=== PATIENT | female | born 1970 | race Caucasian/White ===

== ENCOUNTER 2017-10-18 18:01 | Emergency (ER) | payer MEDICAID ==
[~2017-10-18] VITALS: Ht 160 cm; Wt 54.8 kg
[~2017-10-18 18:01] MED LIST: ALBU8.5H8 IH; DOXY100C77 PO; FLUO20CA39 PO; NAPAOS EACHEYE; PANT-47 PO
[2017-10-18 18:20] VITALS: BP 110/69
== END 2017-10-18 19:54 | disposition home or self-care (01) ==
LOC: ER 18:01
DX: M79.651 Pain in right thigh (principal); G89.29 Other chronic pain; Z86.14 Personal history of Methicillin resistant Staphylococcus aureus infection; Z98.51 Tubal ligation status; Z98.890 Other specified postprocedural states; Z60.2 Problems related to living alone; Z56.0 Unemployment, unspecified; Z79.899 Other long term (current) drug therapy
CPT/HCPCS: 99281

== ENCOUNTER 2017-12-29 15:50 | Emergency (ER) | payer MEDICAID ==
[~2017-12-29] VITALS: Ht 157.5 cm; Wt 59.0 kg
[2017-12-29 16:04] VITALS: BP 128/88
[2017-12-29] MEDS ORDERED: hyDROXYzine 50 mg/ml injection ***IM only IM ONE (16:45)
[2017-12-29] MEDS ORDERED: HYDR-3686 PO (17:13)
== END 2017-12-29 17:36 | disposition home or self-care (01) ==
LOC: ER 15:51
DX: F41.9 Anxiety disorder, unspecified (principal); F41.0 Panic disorder [episodic paroxysmal anxiety]; F32.9 Major depressive disorder, single episode, unspecified; M54.9 Dorsalgia, unspecified; Z72.89 Other problems related to lifestyle; Z98.890 Other specified postprocedural states; Z98.51 Tubal ligation status; Z56.0 Unemployment, unspecified; Z88.1 Allergy status to other antibiotic agents; Z88.8 Allergy status to other drugs, medicaments and biological substances
CPT/HCPCS: 99284; J3410

== ENCOUNTER 2018-03-03 15:32 | Emergency (ER) | payer MEDICAID ==
[~2018-03-03] VITALS: Ht 160 cm; Wt 54.5 kg
[2018-03-03 15:35] VITALS: BP 115/81
[2018-03-03] MEDS ORDERED: ALBU6.7H INH (16:02)
[2018-03-03] MEDS ORDERED: AMOX-419 PO (16:02)
[2018-03-03] MEDS ORDERED: PRED20TA PO (16:02)
== END 2018-03-03 16:15 | disposition home or self-care (01) ==
LOC: ER 15:32
DX: J20.9 Acute bronchitis, unspecified (principal); G89.29 Other chronic pain; F17.210 Nicotine dependence, cigarettes, uncomplicated; Z79.2 Long term (current) use of antibiotics; Z79.899 Other long term (current) drug therapy; Z56.0 Unemployment, unspecified; Z60.2 Problems related to living alone
CPT/HCPCS: 71046; 99284

== ENCOUNTER 2018-06-22 11:36 | Emergency (ER) | payer MEDICAID, OTHER ==
[~2018-06-22] VITALS: Ht 160 cm; Wt 56.8 kg
[~2018-06-22 11:36] MED LIST changes: +ALBU6.7H INH
[2018-06-22 11:51] VITALS: BP 117/79
[2018-06-22 12:11] LABS: CLARITY,URINE CLEAR (Clear); COLOR,URINE YELLOW (Yellow); GLUCOSE, URINE NEGATIVE (Neg); KETONES,URINE NEGATIVE (Neg); LEUKOCYTE ESTERASE ,URINE TRACE (Neg); NITRITES, URINE NEGATIVE (Neg); OCCULT BLOOD,URINE NEGATIVE (Neg); PH,URINE 5.5 (4.8-8.0); PROTEIN,URINE NEGATIVE (Neg); UROBILINOGEN,URINE 0.2 E.U/dL (0.2-1.0)
[2018-06-22 12:16] LABS: UA COLLECTION TYPE CLN CATCH MIDSTREAM
[2018-06-22 12:17] LABS: BACTERIA,URINE FEW /HPF (Neg); MUCUS STRANDS FEW /LPF (Neg); RBC,URINE 0-2 /HPF (0-2); SQUAMOUS EPITHELIAL CELL,UR MANY /LPF (FEW); WBC,URINE NONE SEEN /HPF (0-4)
[2018-06-22] MEDS ORDERED: CIPR-230 PO (12:37)
== END 2018-06-22 12:38 | disposition home or self-care (01) ==
LOC: ER 11:36
DX: N39.0 Urinary tract infection, site not specified (principal); Z56.0 Unemployment, unspecified; Z98.890 Other specified postprocedural states
CPT/HCPCS: 81001; 99283

== ENCOUNTER 2020-03-06 07:03 | Emergency (ER) | payer MEDICAID ==
[~2020-03-06 07:03] MED LIST changes: -ALBU6.7H INH; +ALBU6.7H9 INH
--- NOTE | 2020-03-06 07:31 | NUR ---
At 0720, Went outside in [facility] and there was no patient to be triaged. I attempted to call patient no answer just busy signal. I notified Dr. Miller regarding this.
== END 2020-03-06 07:33 | disposition left against medical advice (07) ==
LOC: ER 07:03
DX: Z00.01 Encounter for general adult medical examination with abnormal findings (principal); Z53.21 Procedure and treatment not carried out due to patient leaving prior to being seen by health care provider

== ENCOUNTER 2023-08-11 10:20 | Emergency (ER) | payer MEDICAID ==
[~2023-08-11] VITALS: Ht 157.5 cm; Wt 51.6 kg
[~2023-08-11 10:20] MED LIST changes: +ALBU6.7H14 INH; -ALBU6.7H9 INH; +ALBU8.5H17 IH; -ALBU8.5H8 IH
[2023-08-11] MEDS ORDERED: PRED20TA PO (11:44)
[2023-08-11] MEDS: predniSONE 20 mg tablet PO ONE (12:01)
[2023-08-11 12:06] VITALS: BP 123/84; PULSE 85; RESP 16; TEMP 98.6; O2SAT 99
== END 2023-08-11 12:08 | disposition home or self-care (01) ==
LOC: ER 10:21
DX: L23.7 Allergic contact dermatitis due to plants, except food (principal); F31.9 Bipolar disorder, unspecified; Z79.899 Other long term (current) drug therapy; Z79.2 Long term (current) use of antibiotics; Z98.51 Tubal ligation status
CPT/HCPCS: 99283; J7512

== ENCOUNTER 2023-08-14 13:18 | Emergency (ER) | payer MEDICAID ==
[~2023-08-14] VITALS: Ht 157.5 cm; Wt 52.4 kg
[~2023-08-14 13:18] MED LIST changes: +PRED20TA PO
[2023-08-14 13:20] VITALS: BP 128/71; PULSE 102; RESP 16; TEMP 98.4; O2SAT 95
== END 2023-08-14 14:08 | disposition left against medical advice (07) ==
LOC: ER 13:18
DX: R21 Rash and other nonspecific skin eruption (principal); L29.9 Pruritus, unspecified; Z53.21 Procedure and treatment not carried out due to patient leaving prior to being seen by health care provider
CPT/HCPCS: 99281

== ENCOUNTER 2025-01-16 15:31 | Emergency (ER) | payer MEDICAID ==
[~2025-01-16] VITALS: Ht 157.5 cm; Wt 54.0 kg
[~2025-01-16 15:31] MED LIST changes: +DOXY-347 PO; -DOXY100C77 PO; -FLUO20CA39 PO; +FLUO20CA41 PO; -PRED20TA PO
[2025-01-16 15:42] VITALS: BP 111/79; PULSE 86; RESP 16; TEMP 98.4; O2SAT 98
--- NOTE | 2025-01-16 15:45 | Physician Documentation ---
History of Present Illness Chief Complaint: Abdominal Pain Stated Complaint: UTI Primary Medical Doctor: none HPI MSE: This is a 54-year-old female that presents to the emergency department for malodorous vaginal discharge burning with urination lower abdominal pain times several days. Reports discharge has resolved but odor has remained. Patient reports one sexual partner in the last couple of months. Denies fevers nausea vomiting at this time. Patient seen and examined. She complains of vaginal discharge that is whitish yellow in color for the past 2-3 weeks. Now improving. She states right lower quadrant pelvic pain. Last menstrual cycle was many years ago. She is postmenopausal. States she was sexually active about 3-4 weeks ago and did not use protection. Denies fevers or chills. No dysuria. Daily alcohol user of about 1-3 Bl[employer] hard lemonade per day. States wants to quit drinking in his tr [place] to get into a program. Follows for primary care services with [facility]. Has an appointment for February. Was asked, but otherwise denies review of systems. Medication Reconciliation Allergies: Coded Allergies: No Known Allergies (Unverified , 01/16/25) Scheduled Albuterol Sulfate (Proventil Hfa), 2 PUFFS INH Q6H Doxycycline Monohydrate (Doxycycline Monohydrate), 100 MG PO BID Doxycycline Monohydrate (Doxycycline Monohydrate), 1 CAP PO Q12H Fluoxetine Hcl* (Prozac*), 1 CAP PO QAM Metronidazole* (Flagyl*), 1 TAB PO Q12H Naphazoline HCl/Phenir Mal (Naphcon-A Eye Drops), 2 DROP EACHEYE QID Pantoprazole Sodium (PROTONIX tablet), 1 TAB PO DAILY Scheduled PRN Albuterol Sulfate (Proair Hfa), 2 PUFFS IH Q4H PRN for SOB or wheezing Past Medical History Past Medical History: No Pertinent History, Chronic Back Pain, MRSA Abscess, Bipolar, Depression Past Surgical History: tonsillectomy, tubal ligation Smoking Status: Current every day smoker Alcohol Use: Heavy Drug Use: none Lives with: Alone Lives In: Home Occupation: unemployed Review of Systems ROS As stated above in the HPI, otherwise all systems are reviewed and negative. Physical Exam General Appearance: WD/WN, no apparent distress Neck: normal inspection Respiratory: lungs clear, no respiratory distress Cardiovascular: regular rate, rhythm Gastrointestinal: normal palpation, non-tender, bowels sounds present; No: pulsatile mass Bladder: normal, non tender Psychiatric: normal mood/affect; No: agitation Skin: normal color, warm/dry; No: rash Medical Decision Making Findings Patient presents secondary to a two to three-week history of vaginal discharge. Vaginal discharges yellow with a fishy odor. No fevers or chills. Reports sexual contact without using protection about four weeks ago. Concern for possible STI. Therefore she was treated for gonorrhea, chlamydia and Trichomonas. Encouraged compliance. Patient has history of alcoholism drinking Bladimir's hard lemonade daily. She states that she wants to go into a program. From a medical standpoint she is medically cleared for rehabilitation. Encouraged to follow up with primary care provider. Fortunately, she has not appointment in February. At this time low clinical suspicion for acute intra-abdominal pathology. Departure Time of Disposition: 16:57 Disposition: HOME / SELF CARE / HOMELESS Impression: Primary Impression: Vaginal discharge Additional Impression: Alcohol abuse Condition: Stable Additional Instructions: You are being given antibiotics for the above-mentioned complaint. Please take to completion. Recommend using condoms for protection against sexually transmitted diseases. Your prophylactically being treated for sexually transmitted infections. Recommend that you follow up with your primary care provider for feeling further testing and management. Recommend that you quit drinking. From a medical standpoint your medically cleared for detox. Referrals: NO PRIMARY CARE PROVIDER (PCP) Prescriptions Metronidazole* (Flagyl*) 500 Mg Tablet 1 TAB PO Q12H for 7 Days, #14 TAB Prov: GEETHA SCHNEIDER NP 01/16/25 Doxycycline Monohydrate (Doxycycline Monohydrate) 100 Mg Capsule 1 CAP PO Q12H for 7 Days, #14 CAP Prov: GEETHA SCHNEIDER STRATEGIC PARTNER DEVELOPMENT MANAGER 01/16/25 Education Educated: Patient Educated regarding: diagnosis, treatment, need for follow up Signature Scribe Signature: No scribe Attestation: The note accurately reflects work and decisions made by me.Geetha Schneider - FESTUS 01/16/25 18:17 This note was created with the assistance of voice recognition software whereby errors in grammar, syntax, and/or spelling may have occurred despite active proofreading efforts by the author. Please do not hesitate to contact the provider for clarification or for questions regarding the content of this document. KRISTIE CASILLAS Jan 16, 2025 15:45 GEETHA SCHNEIDER STRATEGIC PARTNER DEVELOPMENT MANAGER Jan 16, 2025 16:57
[2025-01-16 16:54] LABS: LEUKOCYTE ESTERASE ,URINE SMALL (Neg); NITRITES, URINE NEGATIVE (Neg); OCCULT BLOOD,URINE NEGATIVE (Neg)
[2025-01-16 16:58] LABS: UA COLLECTION TYPE CLN CATCH MIDSTREAM
[2025-01-16 17:00] LABS: MUCUS STRANDS FEW /LPF (Neg); SQUAMOUS EPITHELIAL CELL,UR MODERATE /LPF (FEW)
[2025-01-16 17:01] LABS: CAL OXALATE CRYSTALS 1+ /HPF (NEGATIVE)
[2025-01-16] MEDS: DOXYCYCLINE 100MG CAPSULE PO ONE (17:08)
[2025-01-16] MEDS: CefTRIAXone 500MG IM Kit w/LIDOcaine IM ONE (17:11)
[2025-01-16] MEDS ORDERED: DOXY-460 PO (17:30)
[2025-01-16] MEDS ORDERED: METR-159 PO (17:30)
== END 2025-01-16 17:38 | disposition home or self-care (01) ==
LOC: ER 15:31
DX: N89.8 Other specified noninflammatory disorders of vagina (principal); F10.10 Alcohol abuse, uncomplicated; F17.200 Nicotine dependence, unspecified, uncomplicated; Z90.89 Acquired absence of other organs; Z98.51 Tubal ligation status; Z56.0 Unemployment, unspecified; Z60.2 Problems related to living alone; Y90.9 Presence of alcohol in blood, level not specified
CPT/HCPCS: 36415; 81001; 87088; 87491; 87591; 96372; 99283; J0696